=== PATIENT | male | born 1985 | race Caucasian/White ===

== ENCOUNTER 2017-02-26 16:50 | Emergency (ER) | payer OTHER ==
[~2017-02-26] VITALS: Ht 177.8 cm; Wt 95.3 kg
[~2017-02-26 16:50] MED LIST: ACCUNEB SO1.25 MG/1 INH; ACETAMINOPHEN-1 EAC1 PO; ALBUTEROL2.5 MG/31 INH; AZITHROMYCIN 2250 MG PO; AZITHROMYCIN250 MG PO; CIPROFLOXACIN500 M1 PO; COMBIVENT INH; CYCLOBENZAPRINE10 MG PO; DELTASONE20 MG PO; FLAGYL500 MG PO; FLEXERIL PO; GABAPENTIN 100100 MG PO; HYDROCODONE-AP1 EAC6 PO; HYDROCODONE-APA1 TA1 PO; IBUPROFEN 200200 M1 PO; IBUPROFEN 800800 M1 PO; LIDOCAINE VISC100 M1 SWISH&SPIT; LIDODERM 5%1 PATCH TOP; MAXAIR AUTOHALE14 G1 IH; MELOXICAM7.5 MG PO; NEURONTIN 300300 M1 PO; NOHOMEMEDICATIONS; NORCO 5-325 TA1 EAC1 PO; NORCO 5-325 TA1 EACH PO; ONDANSETRON HCL4 M2 PO; PENICILLIN V P250 MG PO; PENICILLIN VK250 MG PO; PENICILLIN VK500 M1 PO; PENICILLIN VK500 MG PO; PREDNISONE 10 M10 M1 PO; PREDNISONE 20 M20 M1 PO; PREDNISONE 20 M20 MG PO; PREDNISONE50 MG PO; PROAIR HFA8.5 GM; PROAIR HFA8.5 GM IH; PROAIR HFA8.5 GM INH; SERTRALINE HCL50 MG PO; VENTOLIN HFA 1818 GM INH; VICODIN 5-5001 EACH PO; ZOFRAN ODT4 MG PO
[2017-02-26] MEDS ORDERED: PERCOCET 5-3251 EACH PO (17:09)
[2017-02-26] MEDS ORDERED: PENICILLIN V P500 MG PO (17:09)
[2017-02-26 17:47] VITALS: BP 139/97
== END 2017-02-26 17:48 | disposition home or self-care (01) ==
LOC: M.ERS 16:50
DX: K02.9 Dental caries, unspecified (principal); F17.210 Nicotine dependence, cigarettes, uncomplicated; J45.909 Unspecified asthma, uncomplicated; K29.70 Gastritis, unspecified, without bleeding

== ENCOUNTER 2017-03-03 07:22 | Emergency (ER) | payer OTHER ==
[~2017-03-03] VITALS: Ht 177.8 cm; Wt 95.3 kg
[~2017-03-03 07:22] MED LIST changes: +PENICILLIN V P500 MG PO; +PERCOCET 5-3251 EACH PO
[2017-03-03 07:27] VITALS: BP 151/79
[2017-03-03] MEDS ORDERED: HYDROCODON-ACE1 EAC7 PO (07:53)
== END 2017-03-03 07:57 | disposition home or self-care (01) ==
LOC: M.ERS 07:22
DX: K02.9 Dental caries, unspecified (principal); K08.89 Other specified disorders of teeth and supporting structures; J45.909 Unspecified asthma, uncomplicated; F17.210 Nicotine dependence, cigarettes, uncomplicated

== ENCOUNTER 2017-04-26 23:05 | Emergency (ER) | payer OTHER ==
[~2017-04-26] VITALS: Ht 177.8 cm; Wt 99.8 kg
[~2017-04-26 23:05] MED LIST changes: +HYDROCODON-ACE1 EAC7 PO
[2017-04-26] MEDS ORDERED: NEURONTIN 300300 M1 PO (23:13)
[2017-04-27 00:22] LABS: ABSOLUTE EOSINOPHILS 0.1 thou/uL (0.0-0.7); ABSOLUTE LYMPHOCYTES 3.2 thou/uL (0.8-5.3); ABSOLUTE MONOCYTES 0.7 thou/uL (0.0-1.2); ABSOLUTE NEUTROPHILS 4.2 thou/uL (1.6-8.1); BASOPHILS 0.6 %; EOSINOPHILS 1.7 %; HEMATOCRIT 41.5 % (42.0-52.0); HEMOGLOBIN 14.2 gm/dL (14.0-18.0); LYMPHOCYTES 38.5 %; MCH 30.8 pg (26.0-34.0); MCHC 34.2 g/dL (28.0-37.0); MCV 89.9 fL (80.0-100.0); MONOCYTES 8.3 %; MPV 7.3 fl. (7.2-11.1); NUCLEATED RBCS 0 /100WBC; PLATELET COUNT* 283 thou/uL (150-400); POLYS 50.9 %; RBC 4.62 mil/uL (4.50-6.00); RDW-CV 13.9 % (10.5-14.5); WBC 8.3 thou/uL (4.0-11.0)
[2017-04-27 00:31] LABS: ANION GAP 5 mmol/L (7-16); BUN 13 mg/dL (7-18); CALCIUM 8.2 mg/dL (8.5-10.1); CHLORIDE 105 mmol/L (98-107); CO2 32 mmol/L (21-32); CREATININE 1.2 mg/dL (0.6-1.3); GLUCOSE 112 mg/dL (70-99); POTASSIUM 3.8 mmol/L (3.5-5.1); SODIUM 142 mmol/L (136-145)
[2017-04-27 00:42] LABS: ALBUMIN 3.3 g/dL (3.4-5.0); ALKALINE PHOSPHATASE 88 U/L (46-116); LIPASE 59 U/L (73-393); NT-PRO BRAIN NAT PEPTIDE 26 pg/mL (<300); SGOT 19 U/L (15-37); SGPT 34 U/L (30-65); TOTAL BILIRUBIN 0.3 mg/dL (<0.1-1.0); TOTAL PROTEIN 6.3 g/dL (6.4-8.2); TROPONIN-I LEVEL <0.06 ng/mL (<0.06)
[2017-04-27 00:49] LABS: ACETAMINOPHEN < 2 ug/mL (10-30); ALCOHOL < 10 mg/dL (<10); SALICYLATE < 2.8 mg/dL (2.8-20.0)
[2017-04-27 01:37] LABS: URINE BILIRUBIN NEGATIVE (Negative); URINE BLOOD NEGATIVE (Negative); URINE CLARITY CLEAR; URINE COLOR YELLOW; URINE GLUCOSE-RANDOM NEGATIVE (Negative); URINE KETONES NEGATIVE (Negative); URINE LEUKOCYTES-REFLEX NEGATIVE (Negative); URINE NITRITE-REFLEX NEGATIVE (Negative); URINE PROTEIN NEGATIVE (Negative); URINE SPECIFIC GRAVITY 1.025 (1.005-1.030); URINE UROBILINOGEN 0.2 E.U./dl (0.2-1.0)
[2017-04-27 01:43] LABS: AMP/METHAMP Negative (Negative); BARBITURATES Negative (Negative); BENZODIAZEPINES Negative (Negative); COCAINE POSITIVE (Negative); METHADONE Negative (Negative); OPIATES Negative (Negative); PCP Negative (Negative); THC POSITIVE (Negative)
[2017-04-27 02:08] VITALS: BP 126/56
--- NOTE | 2017-04-27 17:57 | EKG ---
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
== END 2017-04-27 02:14 | disposition home or self-care (01) ==
LOC: M.ERS 23:05
PROVIDERS: Emergency Medicine
DX: R55 Syncope and collapse (principal); J45.909 Unspecified asthma, uncomplicated; M06.9 Rheumatoid arthritis, unspecified; F17.210 Nicotine dependence, cigarettes, uncomplicated

== ENCOUNTER 2017-05-01 17:43 | Emergency (ER) | payer OTHER ==
[~2017-05-01] VITALS: Ht 177.8 cm; Wt 98.4 kg
[2017-05-01] MEDS ORDERED: AMOXICILLIN 50500 MG PO (17:56)
[2017-05-01] MEDS ORDERED: IBUPROFEN 800800 M1 PO (19:12)
[2017-05-01] MEDS ORDERED: HYDROCODONE-AP1 EAC6 PO (19:12)
[2017-05-01 19:39] VITALS: BP 122/52
== END 2017-05-01 19:40 | disposition home or self-care (01) ==
LOC: M.ERS 17:43
DX: S93.491A Sprain of other ligament of right ankle, initial encounter (principal); J45.909 Unspecified asthma, uncomplicated; M06.9 Rheumatoid arthritis, unspecified; F17.210 Nicotine dependence, cigarettes, uncomplicated; W22.8XXA Striking against or struck by other objects, initial encounter; Y93.89 Activity, other specified; Y92.89 Other specified places as the place of occurrence of the external cause; Y99.8 Other external cause status

== ENCOUNTER 2017-06-07 11:30 | Emergency (ER) | payer OTHER ==
[~2017-06-07] VITALS: Ht 177.8 cm; Wt 97.5 kg
[~2017-06-07 11:30] MED LIST changes: +AMOXICILLIN 50500 MG PO
[2017-06-07 11:47] LABS: ABSOLUTE EOSINOPHILS 0.1 thou/uL (0.0-0.7); ABSOLUTE LYMPHOCYTES 2.4 thou/uL (0.8-5.3); ABSOLUTE MONOCYTES 0.4 thou/uL (0.0-1.2); ABSOLUTE NEUTROPHILS 2.1 thou/uL (1.6-8.1); BASOPHILS 0.9 %; EOSINOPHILS 2.3 %; HEMATOCRIT 43.8 % (42.0-52.0); LYMPHOCYTES 47.9 %; MCH 30.4 pg (26.0-34.0); MCHC 34.2 g/dL (28.0-37.0); MCV 88.7 fL (80.0-100.0); MONOCYTES 7.3 %; MPV 7.6 fl. (7.2-11.1); NUCLEATED RBCS 0 /100WBC; PLATELET COUNT* 273 thou/uL (150-400); POLYS 41.6 %; RBC 4.94 mil/uL (4.50-6.00); RDW-CV 13.3 % (10.5-14.5); WBC 5.1 thou/uL (4.0-11.0)
[2017-06-07 11:55] LABS: ANION GAP 9 mmol/L (7-16); BUN 8 mg/dL (7-18); CALCIUM 8.9 mg/dL (8.5-10.1); CHLORIDE 104 mmol/L (98-107); CO2 28 mmol/L (21-32); CREATININE 1.1 mg/dL (0.6-1.3); GLUCOSE 107 mg/dL (70-99); POTASSIUM 3.9 mmol/L (3.5-5.1); SODIUM 141 mmol/L (136-145)
[2017-06-07 12:02] LABS: ACETAMINOPHEN < 10 ug/mL (10-30); ALCOHOL < 10 mg/dL (<10)
[2017-06-07 12:04] LABS: APTT 26.8 Seconds (25.0-31.3)
[2017-06-07 12:12] LABS: ALBUMIN 3.7 g/dL (3.4-5.0); ALKALINE PHOSPHATASE 89 U/L (46-116); CK-MB MASS < 0.5 ng/mL (<0.5-3.6); NT-PRO BRAIN NAT PEPTIDE 86 pg/mL (<300); SGOT 26 U/L (15-37); SGPT 45 U/L (30-65); TOTAL BILIRUBIN 0.2 mg/dL (<0.1-1.0); TROPONIN-I LEVEL <0.06 ng/mL (<0.06)
[2017-06-07] MEDS ORDERED: ZOFRAN ODT4 MG SUBLING (12:50)
[2017-06-07 13:11] VITALS: BP 110/53
--- NOTE | 2017-06-07 16:30 | EKG ---
[place] [address] ELECTROCARDIOGRAM REPORT Name: JARVIS GREGG JOEL Room: [facility]#: [id number] Admission: 06/07/17 Attend Phys: Discharge: 06/07/17 Date of : [birth year] Report #: [id number] THIS REPORT FOR: //name// [facility] Test Date: 2017-06-07 Test Time: 12:10:02 Pat Name: JARVIS GREGG Department: Room: Gender: M Telecommunications Support: Eliezer JOLLEY : 1985 Requested By: Kobe Lopez Order Number: [id number] MD: Anurag Zepeda Measurements Intervals [place] Rate: 70 P: 44 MD: 161 QRS: 12 QRSD: 88 T: 32 QT: 407 QTc: 440 Interpretive Statements Sinus rhythm Compared to ECG 04/26/2017 23:34:50 No significant changes Electronically Signed On 06-07-2017 16:30:28 CDT by Anurag Zepeda [email or web address] <ELECTRONICALLY SIGNED> By: Anurag Zepeda MD, [facility] 06/07/17 1630 1210 1210 Anurag Zepeda MD, [facility] /EPI
== END 2017-06-07 13:12 | disposition home or self-care (01) ==
LOC: M.ERS 11:30
PROVIDERS: Family Medicine
DX: R11.2 Nausea with vomiting, unspecified (principal); R53.1 Weakness; J45.909 Unspecified asthma, uncomplicated; M10.9 Gout, unspecified; F17.210 Nicotine dependence, cigarettes, uncomplicated

== ENCOUNTER 2017-06-30 22:49 | Emergency (ER) | payer OTHER ==
[~2017-06-30] VITALS: Ht 177.8 cm; Wt 99.8 kg
[~2017-06-30 22:49] MED LIST changes: +ZOFRAN ODT4 MG SUBLING
[2017-06-30] MEDS ORDERED: NEURONTIN 300300 M1 PO (22:53)
[2017-06-30 23:32] LABS: AMP/METHAMP Negative (Negative); BARBITURATES Negative (Negative); BENZODIAZEPINES Negative (Negative); COCAINE Negative (Negative); METHADONE Negative (Negative); OPIATES Negative (Negative); PCP Negative (Negative); THC POSITIVE (Negative)
[2017-06-30 23:37] LABS: ABSOLUTE EOSINOPHILS 0.1 thou/uL (0.0-0.7); ABSOLUTE LYMPHOCYTES 3.2 thou/uL (0.8-5.3); ABSOLUTE MONOCYTES 0.6 thou/uL (0.0-1.2); BASOPHILS 0.3 %; EOSINOPHILS 0.7 %; HEMATOCRIT 44.9 % (42.0-52.0); HEMOGLOBIN 15.3 gm/dL (14.0-18.0); LYMPHOCYTES 36.2 %; MCH 30.1 pg (26.0-34.0); MCV 88.4 fL (80.0-100.0); MONOCYTES 6.6 %; MPV 7.6 fl. (7.2-11.1); NUCLEATED RBCS 0 /100WBC; PLATELET COUNT* 354 thou/uL (150-400); POLYS 56.2 %; RBC 5.07 mil/uL (4.50-6.00); RDW-CV 13.2 % (10.5-14.5); WBC 8.9 thou/uL (4.0-11.0)
[2017-06-30 23:55] LABS: CALCIUM 9.3 mg/dL (8.5-10.1); CREATININE 1.4 mg/dL (0.6-1.3); POTASSIUM 3.2 mmol/L (3.5-5.1)
[2017-06-30 23:57] LABS: ALBUMIN 4.1 g/dL (3.4-5.0); TOTAL BILIRUBIN 0.5 mg/dL (<0.1-1.0); TOTAL PROTEIN 7.4 g/dL (6.4-8.2)
[2017-07-01] MEDS ORDERED: PEPCID20 MG PO (00:06)
[2017-07-01] MEDS ORDERED: CARAFATE 1 GM TA1 GM PO (00:06)
[2017-07-01 01:10] VITALS: BP 108/64
--- NOTE | 2017-07-01 11:56 | EKG ---
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1985 Requested By: Rajni Cody Order Number: [id number] Josselin MD: Maicol Troncoso Measurements Intervals [place] Rate: 87 P: 66 SC: 132 QRS: 61 QRSD: 93 T: 55 QT: 362 QTc: 436 Interpretive Statements Sinus arrhythmia Baseline wander in lead(s) II,III,aVF,V1,V6 Compared to ECG 06/07/2017 12:10:02 No significant changes Electronically Signed On 07-01-2017 11:56:30 CDT by Maicol Troncoso [email or web address] <ELECTRONICALLY SIGNED> By: Maicol Troncoso MD, [facility] 07/01/17 1156 2253 2253 Maicol Troncoso MD, [facility] /EPI
== END 2017-07-01 01:11 | disposition home or self-care (01) ==
LOC: M.ERS 22:49
PROVIDERS: Emergency Medicine
DX: K29.70 Gastritis, unspecified, without bleeding (principal); J45.909 Unspecified asthma, uncomplicated; M06.9 Rheumatoid arthritis, unspecified; F17.210 Nicotine dependence, cigarettes, uncomplicated

== ENCOUNTER 2017-09-20 17:29 | Emergency (ER) | payer OTHER ==
[~2017-09-20] VITALS: Ht 177.8 cm; Wt 95.3 kg
[~2017-09-20 17:29] MED LIST changes: +CARAFATE 1 GM TA1 GM PO; +PEPCID20 MG PO
[2017-09-20] MEDS ORDERED: BIPOLAR MED (17:37)
[2017-09-20] MEDS ORDERED: NAPROSYN500 MG PO (17:48)
[2017-09-20] MEDS ORDERED: NORCO 5-325 TA1 EACH PO (17:48)
[2017-09-20] MEDS ORDERED: PENICILLIN V P500 MG PO (17:48)
[2017-09-20 18:08] VITALS: BP 151/86
== END 2017-09-20 18:08 | disposition home or self-care (01) ==
LOC: M.ERS 17:29
DX: K02.9 Dental caries, unspecified (principal); J45.909 Unspecified asthma, uncomplicated; M06.9 Rheumatoid arthritis, unspecified; F17.210 Nicotine dependence, cigarettes, uncomplicated

== ENCOUNTER 2017-10-11 15:15 | Emergency (ER) | payer OTHER ==
[~2017-10-11] VITALS: Ht 177.8 cm; Wt 95.3 kg
[~2017-10-11 15:15] MED LIST changes: +BIPOLAR MED; +NAPROSYN500 MG PO
[2017-10-11] MEDS ORDERED: [UNRECOGNIZED DRUG - OTHER] PO (15:24)
[2017-10-11] MEDS ORDERED: VRAYLAR3 MG PO (15:24)
[2017-10-11] MEDS ORDERED: NABUMETONE 750750 M1 PO (16:36)
[2017-10-11] MEDS ORDERED: TRAMADOL 50 MG50 MG PO (16:36)
[2017-10-11] MEDS ORDERED: VENTOLIN HFA 1818 GM INH (16:36)
[2017-10-11] MEDS ORDERED: MEDROLDOSEPACK PO (16:36)
[2017-10-11 16:43] VITALS: BP 110/68
== END 2017-10-11 16:44 | disposition home or self-care (01) ==
LOC: M.ERS 15:15
DX: J45.901 Unspecified asthma with (acute) exacerbation (principal); S46.212A Strain of muscle, fascia and tendon of other parts of biceps, left arm, initial encounter; F31.9 Bipolar disorder, unspecified; M06.9 Rheumatoid arthritis, unspecified; F17.210 Nicotine dependence, cigarettes, uncomplicated; Z98.890 Other specified postprocedural states; X58.XXXA Exposure to other specified factors, initial encounter; Y93.89 Activity, other specified; Y92.89 Other specified places as the place of occurrence of the external cause; Y99.8 Other external cause status

== ENCOUNTER 2017-10-18 18:47 | Emergency (ER) | payer OTHER ==
[~2017-10-18] VITALS: Ht 177.8 cm; Wt 97.5 kg
[~2017-10-18 18:47] MED LIST changes: +MEDROLDOSEPACK PO; +NABUMETONE 750750 M1 PO; +TRAMADOL 50 MG50 MG PO; +VRAYLAR3 MG PO; +[UNRECOGNIZED DRUG - OTHER] PO
[2017-10-18] MEDS ORDERED: [UNRECOGNIZED DRUG - REMARK] (18:58)
[2017-10-18] MEDS ORDERED: AUGMENTIN 875-1 EACH PO (19:16)
[2017-10-18] MEDS ORDERED: HYDROCODON-ACE1 EAC7 PO (19:42)
[2017-10-18 19:52] VITALS: BP 108/63
== END 2017-10-18 19:53 | disposition home or self-care (01) ==
LOC: M.ERS 18:47
DX: K04.7 Periapical abscess without sinus (principal); J45.909 Unspecified asthma, uncomplicated; M06.9 Rheumatoid arthritis, unspecified; F31.9 Bipolar disorder, unspecified; F17.210 Nicotine dependence, cigarettes, uncomplicated

== ENCOUNTER 2017-11-25 13:08 | Emergency (ER) | payer OTHER ==
[~2017-11-25] VITALS: Ht 177.8 cm; Wt 99.8 kg
[~2017-11-25 13:08] MED LIST changes: +AUGMENTIN 875-1 EACH PO; +[UNRECOGNIZED DRUG - REMARK]
[2017-11-25] MEDS ORDERED: LAMICTAL100 MG PO ×2 (13:18→13:19)
[2017-11-25] MEDS ORDERED: LAMICTAL 25 MG25 M1 PO ×2 (13:18)
[2017-11-25 13:29] LABS: HEMATOCRIT 50.1 % (42.0-52.0); HEMOGLOBIN 17.3 gm/dL (14.0-18.0); MCH 30.5 pg (26.0-34.0); MCHC 34.5 g/dL (28.0-37.0); MCV 88.5 fL (80.0-100.0); MPV 7.3 fl. (7.2-11.1); NUCLEATED RBCS 0 /100WBC; PLATELET COUNT* 297 thou/uL (150-400); RBC 5.66 mil/uL (4.50-6.00); RDW-CV 14.1 % (10.5-14.5); WBC 11.1 thou/uL (4.0-11.0)
[2017-11-25 13:41] LABS: CALCIUM 9.2 mg/dL (8.5-10.1); CREATININE 1.2 mg/dL (0.6-1.3); POTASSIUM 3.6 mmol/L (3.5-5.1)
[2017-11-25 13:46] LABS: ABSOLUTE EOSINOPHILS 0.2 thou/uL (0.0-0.7); ABSOLUTE LYMPHOCYTES 0.8 thou/uL (0.8-5.3); ABSOLUTE MONOCYTES 0.4 thou/uL (0.0-1.2); ABSOLUTE NEUTROPHILS 9.7 thou/uL (1.6-8.1); ALBUMIN 4.2 g/dL (3.4-5.0); PLATELET ESTIMATE ADEQUATE; TOTAL BILIRUBIN 0.4 mg/dL (<0.1-1.0); TOTAL PROTEIN 8.2 g/dL (6.4-8.2)
[2017-11-25] MEDS ORDERED: ZOFRAN4 MG PO (14:42)
[2017-11-25 15:12] VITALS: BP 109/57
== END 2017-11-25 15:13 | disposition home or self-care (01) ==
LOC: M.ERS 13:08
PROVIDERS: Nurse Practitioner Family
DX: R11.2 Nausea with vomiting, unspecified (principal); R19.7 Diarrhea, unspecified; F17.210 Nicotine dependence, cigarettes, uncomplicated; J45.909 Unspecified asthma, uncomplicated; M06.9 Rheumatoid arthritis, unspecified; F31.9 Bipolar disorder, unspecified

== ENCOUNTER 2017-12-08 11:56 | Emergency (ER) | payer OTHER ==
[~2017-12-08] VITALS: Ht 177.8 cm; Wt 99.8 kg
[~2017-12-08 11:56] MED LIST changes: +LAMICTAL 25 MG25 M1 PO; +LAMICTAL100 MG PO; +ZOFRAN4 MG PO
[2017-12-08] MEDS ORDERED: BUSPIRONE HCL10 MG PO (12:10)
[2017-12-08] MEDS ORDERED: HYDROCODONE-AP1 EAC6 PO (12:29)
[2017-12-08 12:30] VITALS: BP 132/84
== END 2017-12-08 12:45 | disposition home or self-care (01) ==
LOC: M.ERS 11:56
DX: M65.221 Calcific tendinitis, right upper arm (principal); M65.241 Calcific tendinitis, right hand; F17.210 Nicotine dependence, cigarettes, uncomplicated; J45.909 Unspecified asthma, uncomplicated; M06.9 Rheumatoid arthritis, unspecified; F31.9 Bipolar disorder, unspecified

== ENCOUNTER 2017-12-28 13:21 | Emergency (ER) | payer OTHER ==
[~2017-12-28] VITALS: Ht 177.8 cm; Wt 104.3 kg
[~2017-12-28 13:21] MED LIST changes: +BUSPIRONE HCL10 MG PO
[2017-12-28] MEDS ORDERED: PREDNISONE 10 M10 M1 PO ×3 (14:51→15:29)
[2017-12-28] MEDS ORDERED: FLEXERIL PO ×3 (14:52→15:29)
[2017-12-28] MEDS ORDERED: MOBIC7.5 MG PO ×3 (14:52→15:29)
[2017-12-28 15:41] VITALS: BP 130/76
== END 2017-12-28 15:42 | disposition home or self-care (01) ==
LOC: M.ERS 13:21
DX: S46.811A Strain of other muscles, fascia and tendons at shoulder and upper arm level, right arm, initial encounter (principal); M25.521 Pain in right elbow; F17.210 Nicotine dependence, cigarettes, uncomplicated; J45.909 Unspecified asthma, uncomplicated; M06.9 Rheumatoid arthritis, unspecified; F31.9 Bipolar disorder, unspecified; X50.0XXA Overexertion from strenuous movement or load, initial encounter; Y92.89 Other specified places as the place of occurrence of the external cause; Y93.89 Activity, other specified; Y99.8 Other external cause status

== ENCOUNTER 2018-02-10 21:12 | Emergency (ER) | payer OTHER ==
[~2018-02-10] VITALS: Ht 177.8 cm; Wt 99.8 kg
[~2018-02-10 21:12] MED LIST changes: +MOBIC7.5 MG PO
[2018-02-10] MEDS ORDERED: PENICILLIN V P500 MG PO (21:50)
[2018-02-10] MEDS ORDERED: ZANAFLEX4 MG PO (21:50)
[2018-02-10] MEDS ORDERED: NABUMETONE 750750 M1 PO (21:50)
[2018-02-10] MEDS ORDERED: MEDROLDOSEPACK PO (21:50)
[2018-02-10 22:12] VITALS: BP 113/68
== END 2018-02-10 22:13 | disposition home or self-care (01) ==
LOC: M.ERS 21:12
DX: S39.012A Strain of muscle, fascia and tendon of lower back, initial encounter (principal); S46.211A Strain of muscle, fascia and tendon of other parts of biceps, right arm, initial encounter; K02.9 Dental caries, unspecified; J45.909 Unspecified asthma, uncomplicated; F31.9 Bipolar disorder, unspecified; M19.90 Unspecified osteoarthritis, unspecified site; F43.10 Post-traumatic stress disorder, unspecified; F17.210 Nicotine dependence, cigarettes, uncomplicated; X58.XXXA Exposure to other specified factors, initial encounter; Y93.72 Activity, wrestling; Y92.89 Other specified places as the place of occurrence of the external cause; Y99.8 Other external cause status

== ENCOUNTER 2018-04-10 18:34 | Emergency (ER) | payer OTHER ==
[~2018-04-10] VITALS: Ht 177.8 cm; Wt 99.8 kg
[~2018-04-10 18:34] MED LIST changes: +ZANAFLEX4 MG PO
[2018-04-10 19:10] LABS: ABSOLUTE BASOPHILS 0.1 thou/uL (0.0-0.2); ABSOLUTE EOSINOPHILS 0.1 thou/uL (0.0-0.7); ABSOLUTE LYMPHOCYTES 3.6 thou/uL (0.8-5.3); ABSOLUTE MONOCYTES 0.7 thou/uL (0.0-1.2); ABSOLUTE NEUTROPHILS 5.7 thou/uL (1.6-8.1); BASOPHILS 0.6 %; EOSINOPHILS 1.3 %; HEMATOCRIT 48.4 % (42.0-52.0); HEMOGLOBIN 16.7 gm/dL (14.0-18.0); LYMPHOCYTES 35.3 %; MCH 30.7 pg (26.0-34.0); MCHC 34.5 g/dL (28.0-37.0); MONOCYTES 6.6 %; MPV 7.5 fl. (7.2-11.1); NUCLEATED RBCS 0 /100WBC; PLATELET COUNT* 397 thou/uL (150-400); POLYS 56.2 %; RBC 5.43 mil/uL (4.50-6.00); RDW-CV 13.9 % (10.5-14.5); WBC 10.2 thou/uL (4.0-11.0)
[2018-04-10 19:24] LABS: ALBUMIN 4.3 g/dL (3.4-5.0); ALKALINE PHOSPHATASE 119 U/L (46-116); ANION GAP 10 mmol/L (7-16); BUN 9 mg/dL (7-18); CALCIUM 9.6 mg/dL (8.5-10.1); CHLORIDE 101 mmol/L (98-107); CO2 28 mmol/L (21-32); CREATININE 1.2 mg/dL (0.6-1.3); GLUCOSE 91 mg/dL (70-99); LIPASE 52 U/L (73-393); POTASSIUM 3.7 mmol/L (3.5-5.1); SGOT 26 U/L (15-37); SGPT 52 U/L (30-65); SODIUM 139 mmol/L (136-145); TOTAL BILIRUBIN 0.5 mg/dL (<0.1-1.0); TOTAL PROTEIN 8.4 g/dL (6.4-8.2); TROPONIN-I LEVEL <0.06 ng/mL (<0.06)
[2018-04-10] MEDS ORDERED: ZOFRAN ODT4 MG PO (20:26)
[2018-04-10] MEDS ORDERED: BENTYL 20 MG TA20 M1 PO (20:26)
[2018-04-10] MEDS ORDERED: OMEPRAZOLE40 MG PO (20:26)
[2018-04-10 20:48] VITALS: BP 112/93
--- NOTE | 2018-04-11 09:38 | EKG ---
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
== END 2018-04-10 20:48 | disposition home or self-care (01) ==
LOC: M.ERS 18:34
PROVIDERS: Nurse Practitioner Family
DX: K21.9 Gastro-esophageal reflux disease without esophagitis (principal); R11.2 Nausea with vomiting, unspecified; F17.210 Nicotine dependence, cigarettes, uncomplicated; J45.909 Unspecified asthma, uncomplicated; M06.9 Rheumatoid arthritis, unspecified; F31.9 Bipolar disorder, unspecified

== ENCOUNTER 2018-05-08 16:24 | Emergency (ER) | payer OTHER ==
[~2018-05-08] VITALS: Ht 177.8 cm; Wt 99.8 kg
[~2018-05-08 16:24] MED LIST changes: +BENTYL 20 MG TA20 M1 PO; +GABAPENTIN800 M1 PO; +OMEPRAZOLE40 MG PO
[2018-05-08] MEDS ORDERED: DULERA 200 MCG/13 GM INH (16:41)
[2018-05-08] MEDS ORDERED: HYDROXYZINE HCL50 MG PO (16:42)
[2018-05-08] MEDS ORDERED: NEURONTIN 400400 M1 PO (17:02)
[2018-05-08 17:23] VITALS: BP 132/61
== END 2018-05-08 17:24 | disposition home or self-care (01) ==
LOC: M.ERS 16:24
DX: F19.230 Other psychoactive substance dependence with withdrawal, uncomplicated (principal); F17.210 Nicotine dependence, cigarettes, uncomplicated; J45.909 Unspecified asthma, uncomplicated; M06.9 Rheumatoid arthritis, unspecified; F31.9 Bipolar disorder, unspecified

== ENCOUNTER 2018-05-27 20:07 | Emergency (ER) | payer OTHER ==
[~2018-05-27] VITALS: Ht 180.3 cm; Wt 94.3 kg
[~2018-05-27 20:07] MED LIST changes: +DULERA 200 MCG/13 GM INH; +HYDROXYZINE HCL50 MG PO; +NEURONTIN 400400 M1 PO
[2018-05-27] MEDS ORDERED: DICLOFENAC SODI75 MG PO (20:44)
[2018-05-27] MEDS ORDERED: FLEXERIL PO (20:44)
[2018-05-27 20:52] VITALS: BP 130/82
== END 2018-05-27 20:53 | disposition home or self-care (01) ==
LOC: M.ERS 20:07
DX: M54.5 Low back pain (principal); F17.210 Nicotine dependence, cigarettes, uncomplicated; J45.909 Unspecified asthma, uncomplicated; M06.9 Rheumatoid arthritis, unspecified; F31.9 Bipolar disorder, unspecified

== ENCOUNTER 2018-06-24 15:02 | Emergency (ER) | payer OTHER ==
[~2018-06-24] VITALS: Ht 177.8 cm; Wt 99.8 kg
[~2018-06-24 15:02] MED LIST changes: +DICLOFENAC SODI75 MG PO
[2018-06-24] MEDS ORDERED: NORCO 5-325 TA1 EACH PO (17:05)
[2018-06-24] MEDS ORDERED: NABUMETONE 750750 M1 PO (17:05)
[2018-06-24] MEDS ORDERED: MEDROLDOSEPACK PO (17:05)
[2018-06-24 17:21] VITALS: BP 114/56
== END 2018-06-24 17:22 | disposition home or self-care (01) ==
LOC: M.ERS 15:02
DX: M51.36 Other intervertebral disc degeneration, lumbar region (principal); J45.909 Unspecified asthma, uncomplicated; F17.210 Nicotine dependence, cigarettes, uncomplicated; M06.9 Rheumatoid arthritis, unspecified; F31.9 Bipolar disorder, unspecified

== ENCOUNTER 2018-06-28 00:38 | Emergency (ER) | payer OTHER ==
[~2018-06-28] VITALS: Ht 177.8 cm; Wt 99.8 kg
[2018-06-28 00:42] VITALS: BP 134/78
[2018-06-28] MEDS ORDERED: HYDROCODON-ACE1 EAC7 PO (00:52)
== END 2018-06-28 01:00 | disposition home or self-care (01) ==
LOC: M.ERS 00:38
DX: G89.29 Other chronic pain (principal); M54.5 Low back pain; J45.909 Unspecified asthma, uncomplicated; M06.9 Rheumatoid arthritis, unspecified; F31.9 Bipolar disorder, unspecified; F17.210 Nicotine dependence, cigarettes, uncomplicated

== ENCOUNTER 2018-07-03 04:48 | Emergency (ER) | payer OTHER ==
[~2018-07-03] VITALS: Ht 177.8 cm; Wt 99.8 kg
[2018-07-03] MEDS ORDERED: PERCOCET 7.5-31 EACH PO (05:23)
[2018-07-03 05:32] VITALS: BP 142/97
== END 2018-07-03 05:33 | disposition home or self-care (01) ==
LOC: M.ERS 04:48
DX: G89.29 Other chronic pain (principal); M54.5 Low back pain; J45.909 Unspecified asthma, uncomplicated; M06.9 Rheumatoid arthritis, unspecified; F31.9 Bipolar disorder, unspecified; F17.210 Nicotine dependence, cigarettes, uncomplicated

== ENCOUNTER 2018-07-09 20:41 | Emergency (ER) | payer OTHER ==
[~2018-07-09] VITALS: Ht 177.8 cm; Wt 99.8 kg
[~2018-07-09 20:41] MED LIST changes: +PERCOCET 7.5-31 EACH PO
[2018-07-09] MEDS ORDERED: NEURONTIN 400400 M1 PO (21:13)
[2018-07-09 21:32] VITALS: BP 147/87
== END 2018-07-09 21:33 | disposition home or self-care (01) ==
LOC: M.ERS 20:41
DX: M54.5 Low back pain (principal); F31.9 Bipolar disorder, unspecified; J45.909 Unspecified asthma, uncomplicated; M06.9 Rheumatoid arthritis, unspecified; F17.210 Nicotine dependence, cigarettes, uncomplicated

== ENCOUNTER 2018-08-02 06:31 | Emergency (ER) | payer OTHER ==
[~2018-08-02] VITALS: Ht 177.8 cm; Wt 99.8 kg
[2018-08-02 07:45] LABS: URINE BILIRUBIN NEGATIVE (Negative); URINE BLOOD NEGATIVE (Negative); URINE CLARITY CLEAR; URINE COLOR YELLOW; URINE GLUCOSE-RANDOM NEGATIVE (Negative); URINE KETONES NEGATIVE (Negative); URINE LEUKOCYTES-REFLEX NEGATIVE (Negative); URINE NITRITE-REFLEX NEGATIVE (Negative); URINE PROTEIN NEGATIVE (Negative); URINE SPECIFIC GRAVITY <= 1.005 (1.005-1.030); URINE UROBILINOGEN 0.2 E.U./dl (0.2-1.0)
[2018-08-02 07:46] LABS: CALCIUM 9.3 mg/dL (8.5-10.1); POTASSIUM 3.5 mmol/L (3.5-5.1)
[2018-08-02 07:46] LABS: ABSOLUTE BASOPHILS 0.1 thou/uL (0.0-0.2); ABSOLUTE EOSINOPHILS 0.1 thou/uL (0.0-0.7); ABSOLUTE LYMPHOCYTES 3.5 thou/uL (0.8-5.3); ABSOLUTE MONOCYTES 0.6 thou/uL (0.0-1.2); ABSOLUTE NEUTROPHILS 4.4 thou/uL (1.6-8.1); BASOPHILS 0.7 %; EOSINOPHILS 1.6 %; HEMATOCRIT 44.2 % (42.0-52.0); HEMOGLOBIN 15.1 gm/dL (14.0-18.0); LYMPHOCYTES 39.8 %; MCH 29.9 pg (26.0-34.0); MCHC 34.1 g/dL (28.0-37.0); MCV 87.5 fL (80.0-100.0); MPV 7.2 fl. (7.2-11.1); NUCLEATED RBCS 0 /100WBC; PLATELET COUNT* 359 thou/uL (150-400); POLYS 50.9 %; RBC 5.05 mil/uL (4.50-6.00); WBC 8.7 thou/uL (4.0-11.0)
[2018-08-02 07:51] LABS: ALBUMIN 4.1 g/dL (3.4-5.0); TOTAL BILIRUBIN 0.3 mg/dL (<0.1-1.0); TOTAL PROTEIN 7.6 g/dL (6.4-8.2)
[2018-08-02 08:02] LABS: AMP/METHAMP Negative (Negative); BARBITURATES Negative (Negative); BENZODIAZEPINES Negative (Negative); COCAINE POSITIVE (Negative); METHADONE Negative (Negative); OPIATES Negative (Negative); PCP Negative (Negative); THC Negative (Negative)
[2018-08-02] MEDS ORDERED: VENTOLIN HFA 1818 GM INH (08:23)
[2018-08-02] MEDS ORDERED: GABAPENTIN800 M1 PO (08:23)
[2018-08-02 08:46] VITALS: BP 120/66
--- NOTE | 2018-08-02 11:05 | EKG ---
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: [place] : 1985 Requested By: Neris Pink Order Number: [id number] Josselin MD: Maicol Troncoso Measurements Intervals [place] Rate: 103 P: 59 AL: 127 QRS: -14 QRSD: 85 T: 34 QT: 344 QTc: 451 Interpretive Statements Sinus tachycardia RSR' in V1 or V2, right VCD or RVH Borderline prolonged QT interval Baseline wander in lead(s) V4 Compared to ECG 04/10/2018 19:16:19 RSR' in V1 or V2 now present Electronically Signed On 08-02-2018 11:05:27 CDT by Maicol Troncoso [email or web address] <ELECTRONICALLY SIGNED> By: Maicol Troncoso MD, [facility] 08/02/18 1105 0640 0640 Maicol Troncoso MD, [facility] /EPI
== END 2018-08-02 08:46 | disposition home or self-care (01) ==
LOC: M.ERS 06:31
PROVIDERS: Personal Emergency Response Attendant
DX: F41.9 Anxiety disorder, unspecified (principal); F17.210 Nicotine dependence, cigarettes, uncomplicated; J45.909 Unspecified asthma, uncomplicated; M06.9 Rheumatoid arthritis, unspecified; F31.9 Bipolar disorder, unspecified

== ENCOUNTER 2019-01-29 20:25 | Emergency (ER) | payer OTHER ==
[~2019-01-29] VITALS: Ht 177.8 cm; Wt 100.7 kg
[2019-01-29 21:42] LABS: INFLUENZA A ANTIGEN Negative (Negative); INFLUENZA B ANTIGEN Negative (Negative)
[2019-01-29] MEDS ORDERED: ALBUTEROL2.5 MG/31 INH ×2 (22:07→22:12)
[2019-01-29] MEDS ORDERED: PREDNISONE 10 M10 M1 PO (22:07)
[2019-01-29 22:19] VITALS: BP 111/65
--- NOTE | 2019-01-30 16:15 | EKG ---
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: : 1985 Requested By: Rajni Cody Order Number: [id number] MD: Sebastien Cotto Measurements Intervals [place] Rate: 142 P: [place]: QRS: -37 QRSD: 95 T: 43 QT: 292 QTc: 449 Interpretive Statements Sinus tachycardia Inferior infarct, old possible Consider anterior infarct Baseline wander in lead(s) II,III,aVF,V6 Compared to ECG 08/02/2018 06:40:02 Heart rate has increased Electronically Signed On 01-30-2019 16:14:48 COMMUNICATIONS PROFESSOR by Sebastien Cotto [email or web address] <ELECTRONICALLY SIGNED> By: Sebastien Cotto MD, FACC 01/30/19 1614 38 38 Sebastien Cotto MD, FAC /EPI
== END 2019-01-29 22:24 | disposition home or self-care (01) ==
LOC: M.ERS 20:25
PROVIDERS: Emergency Medicine
DX: J45.909 Unspecified asthma, uncomplicated (principal); F31.9 Bipolar disorder, unspecified; M06.9 Rheumatoid arthritis, unspecified; F17.210 Nicotine dependence, cigarettes, uncomplicated

== ENCOUNTER 2019-02-06 12:48 | Emergency (ER) | payer OTHER ==
[~2019-02-06] VITALS: Ht 177.8 cm; Wt 99.8 kg
[2019-02-06 13:28] LABS: INFLUENZA A ANTIGEN Negative (Negative); INFLUENZA B ANTIGEN Negative (Negative)
[2019-02-06 13:45] LABS: ABSOLUTE BASOPHILS 0.1 thou/uL (0.0-0.2); ABSOLUTE EOSINOPHILS 0.1 thou/uL (0.0-0.7); ABSOLUTE LYMPHOCYTES 3.6 thou/uL (0.8-5.3); ABSOLUTE MONOCYTES 1.1 thou/uL (0.0-1.2); ABSOLUTE NEUTROPHILS 9.8 thou/uL (1.6-8.1); BASOPHILS 0.6 %; EOSINOPHILS 0.9 %; HEMATOCRIT 47.3 % (42.0-52.0); HEMOGLOBIN 16.1 gm/dL (14.0-18.0); LYMPHOCYTES 24.8 %; MCH 29.9 pg (26.0-34.0); MONOCYTES 7.4 %; MPV 7.3 fl. (7.2-11.1); NUCLEATED RBCS 0 /100WBC; PLATELET COUNT* 319 thou/uL (150-400); POLYS 66.3 %; RBC 5.37 mil/uL (4.50-6.00); RDW-CV 13.6 % (10.5-14.5); WBC 14.7 thou/uL (4.0-11.0)
[2019-02-06 13:54] LABS: CALCIUM 9.2 mg/dL (8.5-10.1); POTASSIUM 3.5 mmol/L (3.5-5.1)
[2019-02-06 14:05] LABS: ALBUMIN 3.3 g/dL (3.4-5.0); TOTAL BILIRUBIN 0.4 mg/dL (<0.1-1.0); TOTAL PROTEIN 7.1 g/dL (6.4-8.2)
[2019-02-06] MEDS ORDERED: PREDNISONE 10 M10 MG PO (14:45)
[2019-02-06] MEDS ORDERED: PROMETH-CODEIN 65 ML PO (14:45)
[2019-02-06] MEDS ORDERED: ZPAK PO (14:45)
[2019-02-06] MEDS ORDERED: PULMICORT FLE180 MCG INH (14:47)
[2019-02-06 14:57] VITALS: BP 131/68
--- NOTE | 2019-02-08 12:41 | EKG ---
[place] [address] ELECTROCARDIOGRAM REPORT Name: JARVIS GREGG Room: [facility]#: [id number] Admission: 02/06/19 Attend Phys: Discharge: 02/06/19 Date of : [birth year] Report #: [id number] THIS REPORT FOR: //name// [facility] ED Test Date: 2019-02-06 Test Time: 12:54:58 Pat Name: JARVIS GREGG Department: Room: Gender: M Nurse Coordinator: MART : 1985 Requested By: Tanya Saenz Order Number: [id number] MD: Maicol Troncoso Measurements Intervals [place] Rate: 116 P: 67 [place]: 124 QRS: 76 QRSD: 88 T: 9 QT: 303 QTc: 421 Interpretive Statements Sinus tachycardia consider old inferior infarction Baseline wander in lead(s) II,III,aVL,aVF Compared to ECG 01/29/2019 20:39:32 rate slowed Electronically Signed On 02-08-2019 12:41:18 STRIP DEBURRER by Maicol Troncoso [email or web address] <ELECTRONICALLY SIGNED> By: Maicol Troncoso MD, [facility] 02/08/19 1241 1254 1254 Maicol Troncoso MD, [facility] /EPI
== END 2019-02-06 14:58 | disposition home or self-care (01) ==
LOC: M.ERS 12:48
PROVIDERS: Nurse Practitioner Family
DX: J45.901 Unspecified asthma with (acute) exacerbation (principal); J20.9 Acute bronchitis, unspecified; F31.9 Bipolar disorder, unspecified; F17.210 Nicotine dependence, cigarettes, uncomplicated

== ENCOUNTER 2019-03-24 17:25 | Emergency (ER) | payer OTHER ==
[~2019-03-24] VITALS: Ht 177.8 cm; Wt 102.1 kg
[~2019-03-24 17:25] MED LIST changes: +PREDNISONE 10 M10 MG PO; +PROMETH-CODEIN 65 ML PO; +PULMICORT FLE180 MCG INH; +ZPAK PO
[2019-03-24] MEDS ORDERED: ZANTAC 150MG T150 M1 PO (17:34)
[2019-03-24] MEDS ORDERED: NORCO 5-325 TA1 EAC1 PO (19:14)
[2019-03-24] MEDS ORDERED: IBUPROFEN 800800 M1 PO (19:14)
[2019-03-24 19:22] VITALS: BP 126/92
== END 2019-03-24 19:22 | disposition home or self-care (01) ==
LOC: M.ERS 17:25
DX: S93.491A Sprain of other ligament of right ankle, initial encounter (principal); F31.9 Bipolar disorder, unspecified; J45.909 Unspecified asthma, uncomplicated; M06.9 Rheumatoid arthritis, unspecified; F17.210 Nicotine dependence, cigarettes, uncomplicated; X50.0XXA Overexertion from strenuous movement or load, initial encounter; Y92.89 Other specified places as the place of occurrence of the external cause; Y93.61 Activity, american tackle football; Y99.8 Other external cause status

== ENCOUNTER 2019-04-04 20:23 | Emergency (ER) | payer OTHER ==
[~2019-04-04] VITALS: Ht 177.8 cm; Wt 108.9 kg
[~2019-04-04 20:23] MED LIST changes: +ZANTAC 150MG T150 M1 PO
[2019-04-04 20:56] LABS: ABSOLUTE BASOPHILS 0.1 thou/uL (0.0-0.2); ABSOLUTE EOSINOPHILS 0.2 thou/uL (0.0-0.7); ABSOLUTE LYMPHOCYTES 2.8 thou/uL (0.8-5.3); ABSOLUTE MONOCYTES 0.6 thou/uL (0.0-1.2); ABSOLUTE NEUTROPHILS 5.5 thou/uL (1.6-8.1); BASOPHILS 0.6 %; EOSINOPHILS 1.7 %; HEMATOCRIT 44.8 % (42.0-52.0); HEMOGLOBIN 15.6 gm/dL (14.0-18.0); LYMPHOCYTES 30.3 %; MCH 30.7 pg (26.0-34.0); MCHC 34.9 g/dL (28.0-37.0); MONOCYTES 6.8 %; MPV 7.2 fl. (7.2-11.1); NUCLEATED RBCS 0 /100WBC; PLATELET COUNT* 372 thou/uL (150-400); POLYS 60.6 %; RBC 5.09 mil/uL (4.50-6.00); RDW-CV 14.4 % (10.5-14.5); WBC 9.1 thou/uL (4.0-11.0)
[2019-04-04 20:58] LABS: URINE BILIRUBIN NEGATIVE (Negative); URINE BLOOD NEGATIVE (Negative); URINE CLARITY CLEAR; URINE COLOR YELLOW; URINE GLUCOSE-RANDOM NEGATIVE (Negative); URINE KETONES NEGATIVE (Negative); URINE LEUKOCYTES NEGATIVE (Negative); URINE NITRITE NEGATIVE (Negative); URINE PROTEIN NEGATIVE (Negative); URINE UROBILINOGEN 0.2 E.U./dl (0.2-1.0)
[2019-04-04 21:04] LABS: CREATININE 1.2 mg/dL (0.6-1.3)
[2019-04-04 21:08] LABS: ALBUMIN 4.2 g/dL (3.4-5.0); TOTAL BILIRUBIN 0.3 mg/dL (<0.1-1.0); TOTAL PROTEIN 7.9 g/dL (6.4-8.2)
[2019-04-04] MEDS ORDERED: ZOFRAN ODT4 MG PO (22:00)
[2019-04-04] MEDS ORDERED: PROTONIX 20 MG20 M1 PO (22:00)
[2019-04-04] MEDS ORDERED: CARAFATE1 GM PO (22:00)
[2019-04-04] MEDS ORDERED: NORCO 5-325 TA1 EAC1 PO (22:00)
[2019-04-04 22:20] VITALS: BP 120/81
--- NOTE | 2019-04-05 11:18 | EKG ---
[place] [address] ELECTROCARDIOGRAM REPORT Name: JARVIS GREGG Room: [facility]#: [id number] Admission: 04/04/19 Attend Phys: Discharge: 04/04/19 Date of : [birth year] Date of Service: 04/04/192044 Report #: [id number] THIS REPORT FOR: //name// [facility] ED Test Date: 2019-04-04 Test Time: 20:45:11 Pat Name: JARVIS GREGG Department: Room: Gender: Senior Program Manager: [place] : 1985 Requested By: Ansley Rushing Order Number: [id number] MD: Jeancarlos Cortez Measurements Intervals [place] Rate: 103 P: 60 NV: 153 QRS: -7 QRSD: 88 T: 31 QT: 344 QTc: 451 Interpretive Statements Sinus tachycardia ST elev, probable normal early repol pattern Baseline wander in lead(s) II,aVF Compared to ECG 02/06/2019 12:54:58 ST (T wave) deviation now present Myocardial infarct finding no longer present Electronically Signed On 04-05-2019 11:17:29 ASSISTANT CURATOR by Jeancarlos Cortez [email or web address] <ELECTRONICALLY SIGNED> By: Jeancarlos Cortez MD, FACC 04/05/19 1117 44 44 Jeancarlos Cortez MD, FAC /EPI
== END 2019-04-04 22:20 | disposition home or self-care (01) ==
LOC: M.ERS 20:23
PROVIDERS: Physician Assistant
DX: K76.0 Fatty (change of) liver, not elsewhere classified (principal); J45.909 Unspecified asthma, uncomplicated; F17.210 Nicotine dependence, cigarettes, uncomplicated

== ENCOUNTER 2019-05-28 18:56 | Emergency (ER) | payer OTHER ==
[~2019-05-28] VITALS: Ht 177.8 cm; Wt 108.9 kg
[~2019-05-28 18:56] MED LIST changes: +CARAFATE1 GM PO; +PROTONIX 20 MG20 M1 PO
[2019-05-28 19:17] LABS: URINE BILIRUBIN NEGATIVE (Negative); URINE BLOOD NEGATIVE (Negative); URINE CLARITY CLEAR; URINE COLOR YELLOW; URINE GLUCOSE-RANDOM NEGATIVE (Negative); URINE KETONES NEGATIVE (Negative); URINE LEUKOCYTES-REFLEX NEGATIVE (Negative); URINE NITRITE-REFLEX NEGATIVE (Negative); URINE PROTEIN NEGATIVE (Negative); URINE SPECIFIC GRAVITY <= 1.005 (1.005-1.030); URINE UROBILINOGEN 0.2 E.U./dl (0.2-1.0)
[2019-05-28 19:25] LABS: AMP/METHAMP Negative (Negative); BARBITURATES Negative (Negative); BENZODIAZEPINES Negative (Negative); COCAINE Negative (Negative); METHADONE Negative (Negative); OPIATES Negative (Negative); PCP Negative (Negative); THC Negative (Negative)
[2019-05-28 19:26] LABS: ABSOLUTE BASOPHILS 0.1 thou/uL (0.0-0.2); ABSOLUTE EOSINOPHILS 0.2 thou/uL (0.0-0.7); ABSOLUTE LYMPHOCYTES 3.2 thou/uL (0.8-5.3); ABSOLUTE MONOCYTES 0.8 thou/uL (0.0-1.2); ABSOLUTE NEUTROPHILS 4.9 thou/uL (1.6-8.1); BASOPHILS 0.6 %; HEMATOCRIT 47.1 % (42.0-52.0); HEMOGLOBIN 16.3 gm/dL (14.0-18.0); LYMPHOCYTES 35.2 %; MCH 30.5 pg (26.0-34.0); MCHC 34.7 g/dL (28.0-37.0); MCV 87.9 fL (80.0-100.0); MONOCYTES 8.6 %; MPV 6.9 fl. (7.2-11.1); NUCLEATED RBCS 0 /100WBC; PLATELET COUNT* 391 thou/uL (150-400); POLYS 53.6 %; RBC 5.36 mil/uL (4.50-6.00); RDW-CV 13.8 % (10.5-14.5); WBC 9.1 thou/uL (4.0-11.0)
[2019-05-28 19:33] LABS: CALCIUM 8.6 mg/dL (8.5-10.1); CREATININE 1.2 mg/dL (0.6-1.3); POTASSIUM 3.9 mmol/L (3.5-5.1)
[2019-05-28 19:38] LABS: ALBUMIN 4.1 g/dL (3.4-5.0); TOTAL BILIRUBIN 0.3 mg/dL (<0.1-1.0); TOTAL PROTEIN 7.8 g/dL (6.4-8.2)
[2019-05-28] MEDS ORDERED: PRILOSEC OTC20 MG PO (20:53)
[2019-05-28] MEDS ORDERED: LORCET 5-325 M1 EACH PO (20:53)
[2019-05-28] MEDS ORDERED: CARAFATE 1 GM TA1 GM PO (20:53)
[2019-05-28 21:01] VITALS: BP 125/70
== END 2019-05-28 21:02 | disposition home or self-care (01) ==
LOC: M.ERS 18:56
PROVIDERS: Emergency Medicine
DX: R10.31 Right lower quadrant pain (principal); J45.909 Unspecified asthma, uncomplicated; F17.210 Nicotine dependence, cigarettes, uncomplicated; Z79.899 Other long term (current) drug therapy

== ENCOUNTER 2019-07-02 16:56 | Emergency (ER) | payer OTHER ==
[~2019-07-02] VITALS: Ht 177.8 cm; Wt 113.4 kg
[~2019-07-02 16:56] MED LIST changes: +LORCET 5-325 M1 EACH PO; +PRILOSEC OTC20 MG PO
[2019-07-02] MEDS ORDERED: FAMOTIDINE 10 M10 MG PO (17:09)
[2019-07-02 17:29] LABS: ABSOLUTE EOSINOPHILS 0.2 thou/uL (0.0-0.7); ABSOLUTE LYMPHOCYTES 3.3 thou/uL (0.8-5.3); ABSOLUTE MONOCYTES 0.6 thou/uL (0.0-1.2); ABSOLUTE NEUTROPHILS 4.2 thou/uL (1.6-8.1); BASOPHILS 0.6 %; HEMATOCRIT 47.6 % (42.0-52.0); HEMOGLOBIN 16.6 gm/dL (14.0-18.0); LYMPHOCYTES 39.3 %; MCH 30.4 pg (26.0-34.0); MCHC 34.8 g/dL (28.0-37.0); MCV 87.3 fL (80.0-100.0); MONOCYTES 7.5 %; NUCLEATED RBCS 0 /100WBC; PLATELET COUNT* 352 thou/uL (150-400); POLYS 50.6 %; RBC 5.46 mil/uL (4.50-6.00); RDW-CV 13.2 % (10.5-14.5); WBC 8.3 thou/uL (4.0-11.0)
[2019-07-02 17:36] LABS: CALCIUM 8.7 mg/dL (8.5-10.1); CREATININE 1.3 mg/dL (0.6-1.3); POTASSIUM 3.4 mmol/L (3.5-5.1)
[2019-07-02 17:40] LABS: TOTAL BILIRUBIN 0.4 mg/dL (<0.1-1.0); TOTAL PROTEIN 7.9 g/dL (6.4-8.2)
[2019-07-02] MEDS ORDERED: NORCO 5-325 TA1 EAC1 PO (19:39)
[2019-07-02] MEDS ORDERED: CARAFATE1 GM PO (19:39)
[2019-07-02] MEDS ORDERED: PROTONIX40 M2 PO ×2 (19:39→20:19)
[2019-07-02 20:39] VITALS: BP 115/80
--- NOTE | 2019-07-03 12:48 | EKG ---
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1985 Requested By: Tanya Saenz Order Number: [id number] MD: Maicol Troncoso Measurements Intervals [place] Rate: 93 P: 52 WI: 155 QRS: 28 QRSD: 85 T: 50 QT: 360 QTc: 448 Interpretive Statements Sinus rhythm Compared to ECG 04/04/2019 20:45:11 Sinus tachycardia no longer present Sinus tachycardia no longer present Electronically Signed On 07-03-2019 12:46:18 CDT by Maicol Troncoso [email or web address] <ELECTRONICALLY SIGNED> By: Maicol Troncoso MD, FAC 07/03/19 1246 1736 1736 Maicol Troncoso MD, [facility] /EPI
== END 2019-07-02 20:40 | disposition home or self-care (01) ==
LOC: M.ERS 16:56
PROVIDERS: Nurse Practitioner Family
DX: R10.84 Generalized abdominal pain (principal); J45.909 Unspecified asthma, uncomplicated; F31.9 Bipolar disorder, unspecified; F17.210 Nicotine dependence, cigarettes, uncomplicated

== ENCOUNTER 2019-08-23 19:07 | Emergency (ER) | payer OTHER ==
[~2019-08-23] VITALS: Ht 177.8 cm; Wt 113.4 kg
[~2019-08-23 19:07] MED LIST changes: +FAMOTIDINE 10 M10 MG PO; +PROTONIX40 M2 PO
[2019-08-23] MEDS ORDERED: MONTELUKAST SODI4 M1 PO (20:05)
[2019-08-23 21:07] LABS: CALCIUM 8.2 mg/dL (8.5-10.1); CREATININE 1.5 mg/dL (0.6-1.3)
[2019-08-23 22:51] VITALS: BP 132/78
== END 2019-08-23 22:51 | disposition home or self-care (01) ==
LOC: M.ERS 19:07
PROVIDERS: Emergency Medicine Emergency Medical Services
DX: J02.9 Acute pharyngitis, unspecified (principal); J45.909 Unspecified asthma, uncomplicated; M06.9 Rheumatoid arthritis, unspecified; F31.9 Bipolar disorder, unspecified; F17.210 Nicotine dependence, cigarettes, uncomplicated

== ENCOUNTER 2020-01-30 03:21 | Emergency (ER) | payer OTHER ==
[~2020-01-30] VITALS: Ht 177.8 cm; Wt 104.3 kg
[~2020-01-30 03:21] MED LIST changes: +MONTELUKAST SODI4 M1 PO
[2020-01-30] MEDS ORDERED: CARAFATE1 GM PO (03:34)
[2020-01-30 03:59] LABS: URINE BILIRUBIN NEGATIVE (Negative); URINE BLOOD NEGATIVE (Negative); URINE CLARITY CLEAR; URINE COLOR YELLOW; URINE GLUCOSE-RANDOM NEGATIVE (Negative); URINE KETONES NEGATIVE (Negative); URINE LEUKOCYTES-REFLEX NEGATIVE (Negative); URINE NITRITE-REFLEX NEGATIVE (Negative); URINE PROTEIN NEGATIVE (Negative); URINE SPECIFIC GRAVITY 1.025 (1.005-1.030); URINE UROBILINOGEN 0.2 E.U./dl (0.2-1.0)
[2020-01-30 04:00] LABS: ABSOLUTE BASOPHILS 0.1 thou/uL (0.0-0.2); ABSOLUTE EOSINOPHILS 0.1 thou/uL (0.0-0.7); ABSOLUTE LYMPHOCYTES 3.2 thou/uL (0.8-5.3); ABSOLUTE MONOCYTES 0.6 thou/uL (0.0-1.2); BASOPHILS 0.9 %; EOSINOPHILS 1.5 %; HEMATOCRIT 43.8 % (42.0-52.0); HEMOGLOBIN 14.9 gm/dL (14.0-18.0); LYMPHOCYTES 35.7 %; MCH 29.8 pg (26.0-34.0); MCV 87.7 fL (80.0-100.0); MONOCYTES 6.8 %; MPV 7.1 fl. (7.2-11.1); NUCLEATED RBCS 0 /100WBC; PLATELET COUNT* 363 thou/uL (150-400); POLYS 55.1 %; RDW-CV 13.9 % (10.5-14.5); WBC 9.1 thou/uL (4.0-11.0)
[2020-01-30 04:04] LABS: AMP/METHAMP Negative (Negative); BARBITURATES Negative (Negative); BENZODIAZEPINES Negative (Negative); COCAINE Negative (Negative); METHADONE Negative (Negative); OPIATES Negative (Negative); PCP Negative (Negative); THC POSITIVE (Negative)
[2020-01-30 04:05] LABS: CALCIUM 8.6 mg/dL (8.5-10.1); CREATININE 1.1 mg/dL (0.6-1.3); POTASSIUM 3.9 mmol/L (3.5-5.1)
[2020-01-30 04:13] LABS: ALBUMIN 3.9 g/dL (3.4-5.0); TOTAL BILIRUBIN 0.3 mg/dL (<0.1-1.0); TOTAL PROTEIN 7.6 g/dL (6.4-8.2)
[2020-01-30] MEDS ORDERED: HYDROCODON-ACE1 EAC8 PO (06:22)
[2020-01-30] MEDS ORDERED: CARAFATE 1 GM TA1 GM PO (06:22)
[2020-01-30] MEDS ORDERED: PROTONIX40 MG PO (06:22)
[2020-01-30 06:34] VITALS: BP 133/80
== END 2020-01-30 06:36 | disposition home or self-care (01) ==
LOC: M.ERS 03:21
PROVIDERS: Emergency Medicine
DX: R10.13 Epigastric pain (principal); R10.32 Left lower quadrant pain; J45.909 Unspecified asthma, uncomplicated; F17.210 Nicotine dependence, cigarettes, uncomplicated; Z79.899 Other long term (current) drug therapy

== ENCOUNTER 2020-08-05 00:55 | Emergency (ER) | payer OTHER ==
[~2020-08-05] VITALS: Ht 177.8 cm; Wt 113.4 kg
[~2020-08-05 00:55] MED LIST changes: +HYDROCODON-ACE1 EAC8 PO; +PROTONIX40 MG PO
[2020-08-05] MEDS ORDERED: CARAFATE 1 GM TA1 GM PO (01:23)
[2020-08-05] MEDS ORDERED: NEURONTIN800 MG PO (01:24)
[2020-08-05 01:46] LABS: ABSOLUTE BASOPHILS 0.1 thou/uL (0.0-0.2); ABSOLUTE EOSINOPHILS 0.1 thou/uL (0.0-0.7); ABSOLUTE LYMPHOCYTES 3.6 thou/uL (0.8-5.3); ABSOLUTE MONOCYTES 0.7 thou/uL (0.0-1.2); ABSOLUTE NEUTROPHILS 4.5 thou/uL (1.6-8.1); BASOPHILS 0.8 %; EOSINOPHILS 1.4 %; HEMATOCRIT 44.8 % (42.0-52.0); HEMOGLOBIN 15.5 gm/dL (14.0-18.0); LYMPHOCYTES 40.1 %; MCH 30.7 pg (26.0-34.0); MCHC 34.5 g/dL (28.0-37.0); MCV 88.9 fL (80.0-100.0); MONOCYTES 7.7 %; MPV 7.4 fl. (7.2-11.1); NUCLEATED RBCS 0 /100WBC; PLATELET COUNT* 386 thou/uL (150-400); RBC 5.04 mil/uL (4.50-6.00); RDW-CV 13.7 % (10.5-14.5)
[2020-08-05 01:52] LABS: CALCIUM 9.3 mg/dL (8.5-10.1); CREATININE 1.2 mg/dL (0.6-1.3); POTASSIUM 3.9 mmol/L (3.5-5.1); URINE BILIRUBIN 1+ (Negative); URINE BLOOD NEGATIVE (Negative); URINE CLARITY CLEAR; URINE COLOR YELLOW; URINE GLUCOSE-RANDOM NEGATIVE (Negative); URINE KETONES NEGATIVE (Negative); URINE LEUKOCYTES-REFLEX NEGATIVE (Negative); URINE NITRITE-REFLEX NEGATIVE (Negative); URINE PROTEIN TRACE (Negative); URINE SPECIFIC GRAVITY >= 1.030 (1.005-1.030); URINE UROBILINOGEN 0.2 E.U./dl (0.2-1.0)
[2020-08-05 01:54] LABS: ICTOTEST (BILI CONFIRMATORY) Positive (Negative)
[2020-08-05 01:56] LABS: ALBUMIN 4.1 g/dL (3.4-5.0); TOTAL BILIRUBIN 0.3 mg/dL (<0.1-1.0); TOTAL PROTEIN 7.9 g/dL (6.4-8.2)
[2020-08-05] MEDS ORDERED: DICYCLOMINE HCL20 MG PO (06:04)
[2020-08-05] MEDS ORDERED: ACETAMINOPHEN-1 EAC2 PO (06:04)
[2020-08-05] MEDS ORDERED: ZOFRAN ODT4 MG PO (06:04)
[2020-08-05 06:16] VITALS: BP 121/86
--- NOTE | 2020-08-05 11:10 | EKG ---
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[place] : 1985 Requested By: Neris Pink Order Number: [id number] MD: Sebastien Cotto Measurements Intervals [place] Rate: 84 P: 46 [place]: 148 QRS: 3 QRSD: 86 T: 38 QT: 377 QTc: 446 Interpretive Statements Sinus rhythm ST elev, probable normal early repol pattern Baseline wander in lead(s) V3 Compared to ECG 07/02/2019 17:36:25 Early repolarization is noted Electronically Signed On 08-05-2020 11:10:44 CDT by Sebastien Cotto [email or web address] <ELECTRONICALLY SIGNED> By: Sebastien Cotto MD, [facility] 08/05/20 1110 0146 0146 Sebastien Cotto MD, [facility] /EPI
== END 2020-08-05 06:17 | disposition home or self-care (01) ==
LOC: M.ERS 00:55
PROVIDERS: Personal Emergency Response Attendant
DX: K76.0 Fatty (change of) liver, not elsewhere classified (principal); J45.909 Unspecified asthma, uncomplicated; F17.210 Nicotine dependence, cigarettes, uncomplicated

== ENCOUNTER 2020-08-27 18:22 | Emergency (ER) | payer OTHER ==
[~2020-08-27] VITALS: Ht 177.8 cm; Wt 113.4 kg
[~2020-08-27 18:22] MED LIST changes: +ACETAMINOPHEN-1 EAC2 PO; +DICYCLOMINE HCL20 MG PO; +NEURONTIN800 MG PO
[2020-08-27 20:11] LABS: ABSOLUTE BASOPHILS 0.1 thou/uL (0.0-0.2); ABSOLUTE EOSINOPHILS 0.2 thou/uL (0.0-0.7); ABSOLUTE LYMPHOCYTES 4.8 thou/uL (0.8-5.3); ABSOLUTE MONOCYTES 0.7 thou/uL (0.0-1.2); ABSOLUTE NEUTROPHILS 5.6 thou/uL (1.6-8.1); BASOPHILS 0.7 %; EOSINOPHILS 1.6 %; HEMATOCRIT 45.7 % (42.0-52.0); HEMOGLOBIN 16.2 gm/dL (14.0-18.0); LYMPHOCYTES 41.8 %; MCH 31.2 pg (26.0-34.0); MCHC 35.4 g/dL (28.0-37.0); MCV 88.1 fL (80.0-100.0); MONOCYTES 6.3 %; NUCLEATED RBCS 0 /100WBC; PLATELET COUNT* 369 thou/uL (150-400); POLYS 49.6 %; RBC 5.19 mil/uL (4.50-6.00); RDW-CV 13.7 % (10.5-14.5); WBC 11.4 thou/uL (4.0-11.0)
[2020-08-27 20:31] LABS: CREATININE 1.2 mg/dL (0.6-1.3); POTASSIUM 3.6 mmol/L (3.5-5.1)
[2020-08-27 20:36] LABS: TOTAL BILIRUBIN 0.4 mg/dL (<0.1-1.0)
[2020-08-27 20:57] LABS: URINE BILIRUBIN NEGATIVE (Negative); URINE BLOOD NEGATIVE (Negative); URINE CLARITY CLEAR; URINE COLOR YELLOW; URINE GLUCOSE-RANDOM NEGATIVE (Negative); URINE KETONES NEGATIVE (Negative); URINE LEUKOCYTES-REFLEX NEGATIVE (Negative); URINE NITRITE-REFLEX NEGATIVE (Negative); URINE PROTEIN NEGATIVE (Negative); URINE SPECIFIC GRAVITY 1.025 (1.005-1.030); URINE UROBILINOGEN 0.2 E.U./dl (0.2-1.0)
[2020-08-27] MEDS ORDERED: HYDROCODON-ACE1 EAC7 PO (22:13)
[2020-08-27] MEDS ORDERED: CARAFATE 1 GM TA1 G1 PO (22:13)
[2020-08-27] MEDS ORDERED: BENTYL 10 MG CA10 M1 PO (22:13)
[2020-08-27] MEDS ORDERED: OMEPRAZOLE40 MG PO (22:13)
[2020-08-27] MEDS ORDERED: ONDANSETRON HCL4 M2 PO (22:13)
[2020-08-27 22:27] VITALS: BP 128/74
== END 2020-08-27 22:32 | disposition home or self-care (01) ==
LOC: M.ERS 18:22
PROVIDERS: Nurse Practitioner
DX: R10.84 Generalized abdominal pain (principal); J45.909 Unspecified asthma, uncomplicated; F17.210 Nicotine dependence, cigarettes, uncomplicated